=== PATIENT | female | born 1980 | race Two or more races ===

== ENCOUNTER 2023-06-07 13:10 | Inpatient (IN) | payer OTHER ==
[~2023-06-07] VITALS: Ht 154.9 cm; Wt 1.8 kg
[2023-06-07 13:57] LABS: HEMATOCRIT 36.5 % (36.0-45.00); HEMOGLOBIN 12.5 g/dL (12.0-15.00); MEAN CELL VOLUME 97.7 fL (80.00-100.00); MEAN CORPUSCULAR HEMOGLOBIN 33.3 pg (27.00-32.0); MEAN CORPUSCULAR HGB CONC 34.1 g/dl (32.0-36.0); RED BLOOD COUNT 3.74 M/uL (4.00-6.00); RED CELL DISTRIBUTION WIDTH 13.5 % (11.5-14.5)
[2023-06-07 14:00] LABS: URINE APPEARANCE Cloudy; URINE BILIRRUBIN Negative (NEGATIVE); URINE BLOOD Negative; URINE COLOR Yellow; URINE GLUCOSE Negative (NEGATIVE); URINE LEUKOCYTE Negative; URINE NITRATE Negative; URINE PROTEIN Trace (NEGATIVE); URINE UROBILINOGEN 0.2 E.U./dl
[2023-06-07 14:01] LABS: URINE BACTERIA 1244.6 uL (0.0-1933); URINE EPITHELIAL CELLS 42.5 uL (0.0-38.8); URINE WBC 31.3 uL (0.0-23.2)
[2023-06-07] MEDS ORDERED: NIFEDIPINE20 MG PO (14:02)
[2023-06-07] MEDS ORDERED: INTEGRA PLUS C1 EACH (14:02)
[2023-06-07] MEDS ORDERED: PRENA1 TRUE CO1 EACH (14:02)
[2023-06-07 14:07] LABS: INR < 0.93; PARTIAL THROMBOPLASTIN TIME 26.5 SECONDS (22.0-34.0); PROTHROMBIN TIME 9.6 SECONDS (9.0-11.5)
[2023-06-07 14:40] LABS: PLATELET COUNT 113 K/uL (150-450)
[2023-06-08 06:52] LABS: HEMATOCRIT 31.7 % (36.0-45.00); HEMOGLOBIN 11.1 g/dL (12.0-15.00); MEAN CELL VOLUME 97.6 fL (80.00-100.00); MEAN CORPUSCULAR HEMOGLOBIN 34.1 pg (27.00-32.0); RED BLOOD COUNT 3.25 M/uL (4.00-6.00); RED CELL DISTRIBUTION WIDTH 13.5 % (11.5-14.5)
[2023-06-08 07:10] LABS: PLATELET COUNT 84 K/uL (150-450)
== END 2023-06-09 14:47 | disposition home or self-care (01) | DRG 788 ==
LOC: LDR 13:10 → OB/GYN 18:56
PROVIDERS: ADMIT Specialist; ATTEND Specialist
PROC: 4A1HXCZ Monitoring of Products of Conception, Cardiac Rate, External Approach (ICD-10-PCS; 2023-06-07)
PROC: 10D00Z1 Extraction of Products of Conception, Low, Open Approach (ICD-10-PCS; principal; 2023-06-07 19:45)
DX: O36.5930 Maternal care for other known or suspected poor fetal growth, third trimester, not applicable or unspecified (principal); O69.89X0 Labor and delivery complicated by other cord complications, not applicable or unspecified; O36.8330 Maternal care for abnormalities of the fetal heart rate or rhythm, third trimester, not applicable or unspecified; Z3A.37 37 weeks gestation of pregnancy; Z37.0 Single live birth; Z20.822 Contact with and (suspected) exposure to COVID-19

== ENCOUNTER 2024-07-19 14:26 | Outpatient (CLI) | payer OTHER ==
[~2024-07-19 14:26] MED LIST: INTEGRA PLUS C1 EACH; NIFEDIPINE20 MG PO; PRENA1 TRUE CO1 EACH
== END 2024-07-19 14:35 | disposition home or self-care (01) ==
LOC: RAD 14:26
PROVIDERS: ATTEND Surgery
DX: D3A.0 Benign carcinoid tumors (principal); D12.6 Benign neoplasm of colon, unspecified

== ENCOUNTER 2024-07-20 10:46 | Outpatient (CLI) | payer OTHER ==
[2024-07-20 12:12] LABS: PH,URINE 5.5 (5.0-8.0); URINE APPEARANCE Clear; URINE BILIRRUBIN Negative (NEGATIVE); URINE BLOOD Negative; URINE COLOR Yellow; URINE GLUCOSE Negative (NEGATIVE); URINE KETONE Negative (NEGATIVE); URINE LEUKOCYTE Moderate; URINE NITRATE Negative; URINE PROTEIN Negative (NEGATIVE); URINE UROBILINOGEN 0.2 E.U./dl
[2024-07-20 12:17] LABS: URINE BACTERIA 112.1 uL (0.0-1933); URINE WBC 244.2 uL (0.0-23.2)
[2024-07-20 12:27] LABS: URINE CAST 0.91 uL (0.0-1.40)
[2024-07-20 12:28] LABS: URINE MUCUS MODERATE
[2024-07-20 12:37] LABS: HEMATOCRIT 39.3 % (36.0-45.00); MEAN CELL VOLUME 96.9 fL (80.00-100.00); MEAN CORPUSCULAR HEMOGLOBIN 32.2 pg (27.00-32.0); MEAN CORPUSCULAR HGB CONC 33.2 g/dl (32.0-36.0); PLATELET COUNT 234 K/uL (150-450); RED BLOOD COUNT 4.05 M/uL (4.00-6.00); RED CELL DISTRIBUTION WIDTH 13.3 % (11.5-14.5)
[2024-07-20 12:53] LABS: ALBUMIN 4.1 gm/dL (3.4-5.0); BILIRUBIN TOTAL 0.87 mg/dL (0.3-1.2); CALCIUM 9.6 mg/dL (8.5-10.1); CREATININE SERUM 0.46 mg/dL (0.55-1.02); GFR 147.57; GLOBULINA 2.9 G/DL (2.4-3.5); INR 0.99; PARTIAL THROMBOPLASTIN TIME 27.9 SECONDS (22.0-34.0); POTASSIUM 4.14 mEq/L (3.5-5.1); PROTHROMBIN TIME 10.8 SECONDS (9.0-11.5)
== END 2024-07-20 10:57 | disposition home or self-care (01) ==
LOC: LAB 10:46
PROVIDERS: ATTEND Surgery
DX: D3A.0 Benign carcinoid tumors (principal); D12.6 Benign neoplasm of colon, unspecified

== ENCOUNTER 2024-07-21 12:30 | Inpatient (IN) | payer OTHER ==
[~2024-07-21] VITALS: Ht 154.9 cm; Wt 45.8 kg
[2024-07-26] MEDS ORDERED: CEFTRIAXONE SODIUM 2,000 MG VIAL IV SCH (09:45)
[2024-07-26] MEDS ORDERED: METRONIDAZOLE/SODIUM CHLORIDE 500 MG/100 ML PIGGYBACK IV SCH (10:00)
[2024-07-26] MEDS ORDERED: BUPIVACAINE HCL 30 ML VIAL IJ ONE (10:00)
[2024-07-26] MEDS ORDERED: LIDOCAINE HCL 1%/EPINEPHRINE 20ML VIAL IJ ONE (10:00)
[2024-07-26] MEDS ORDERED: MORPHINE SULFATE 4 MG/ML VIAL IV ONE ×2 (11:15→12:15)
[2024-07-26] MEDS ORDERED: RINGERS SOLUTION,LACTATED 1,000 ML IV SCH (12:30)
[2024-07-26] MEDS ORDERED: MORPHINE SULFATE 4 MG/ML CARTRIDGE IV PRN (12:30)
[2024-07-26] MEDS ORDERED: DEXTROSE 50 % IN WATER 0.5 G/ML DISP.SYRIN IV PRN (12:30)
[2024-07-26] MEDS ORDERED: OxyCODONE HCL 5 MG TABLET (ROXICODONE) PO PRN (12:30)
[2024-07-26] MEDS ORDERED: ONDANSETRON HCL 2 MG/ML VIAL IV PRN (12:30)
[2024-07-26 13:47] LABS: HEMATOCRIT 38.1 % (36.0-45.00); MEAN CELL VOLUME 96.1 fL (80.00-100.00); MEAN CORPUSCULAR HEMOGLOBIN 32.8 pg (27.00-32.0); MEAN CORPUSCULAR HGB CONC 34.1 g/dl (32.0-36.0); PLATELET COUNT 198 K/uL (150-450); RED BLOOD COUNT 3.97 M/uL (4.00-6.00); RED CELL DISTRIBUTION WIDTH 13.3 % (11.5-14.5)
[2024-07-26] MEDS ORDERED: HYOSCYAMINE SULFATE 0.125 MG TAB.SUBL SL SCH (17:00)
[2024-07-26] MEDS ORDERED: POLYETHYLENE GLYCOL 3350 17 GM BLIST.PACK PO SCH (17:00)
[2024-07-26] MEDS ORDERED: GABAPENTIN 300 MG CAPSULE PO SCH (17:00)
[2024-07-26] MEDS ORDERED: SIMETHICONE 125 MG CAPSULE PO SCH (17:00)
[2024-07-26 17:15] VITALS: BP 111/74; O2SAT 100
[2024-07-26] MEDS ORDERED: ACETAMINOPHEN 500 MG GEL..CAP PO SCH (20:00)
[2024-07-26] MEDS ORDERED: FAMOTIDINE/PF 20 MG/2 ML VIAL IV PUSH SCH (21:00)
[2024-07-26] MEDS ORDERED: CELECOXIB 200 MG CAPSULE PO SCH (21:00)
[2024-07-27 00:29] VITALS: BP 112/65; O2SAT 100
[2024-07-27 06:26] LABS: HEMATOCRIT 33.1 % (36.0-45.00); HEMOGLOBIN 11.5 g/dL (12.0-15.00); MEAN CELL VOLUME 94.3 fL (80.00-100.00); MEAN CORPUSCULAR HEMOGLOBIN 32.8 pg (27.00-32.0); MEAN CORPUSCULAR HGB CONC 34.7 g/dl (32.0-36.0); PLATELET COUNT 162 K/uL (150-450); RED BLOOD COUNT 3.51 M/uL (4.00-6.00); RED CELL DISTRIBUTION WIDTH 13.7 % (11.5-14.5)
[2024-07-27 07:08] LABS: ALBUMIN 3.1 gm/dL (3.4-5.0); CALCIUM 8.5 mg/dL (8.5-10.1); CREATININE SERUM 0.4 mg/dL (0.55-1.02); GFR 173.4; MAGNESIUM 1.7 mg/dL (1.8-2.4); PHOSPHOROUS 3.1 mg/dL (2.5-4.9); POTASSIUM 3.52 mEq/L (3.5-5.1)
[2024-07-27 08:00] VITALS: BP 110/75; O2SAT 98
[2024-07-27] MEDS ORDERED: MAGNESIUM SULFATE IN WATER 50 ML IV ONE (08:00)
[2024-07-27] MEDS ORDERED: LACTOBACILLUS ACIDOPHILUS 1 CAP CAP PO SCH (09:00)
[2024-07-27 16:22] VITALS: BP 114/77; O2SAT 98
[2024-07-27] MEDS ORDERED: ENOXAPARIN SODIUM 40 MG/0.4 ML SYRINGE SUBCUTANEO SCH (17:00)
[2024-07-27] MEDS ORDERED: GABAPENTIN 300 MG CAPSULE PO PRN (17:16)
[2024-07-28] VITALS: BP 114/76; O2SAT 100
[2024-07-28 07:08] LABS: HEMATOCRIT 33.4 % (36.0-45.00); HEMOGLOBIN 11.2 g/dL (12.0-15.00); MEAN CELL VOLUME 96.2 fL (80.00-100.00); MEAN CORPUSCULAR HEMOGLOBIN 32.3 pg (27.00-32.0); MEAN CORPUSCULAR HGB CONC 33.6 g/dl (32.0-36.0); PLATELET COUNT 171 K/uL (150-450); RED BLOOD COUNT 3.47 M/uL (4.00-6.00); RED CELL DISTRIBUTION WIDTH 13.4 % (11.5-14.5)
[2024-07-28 07:50] LABS: CALCIUM 8.7 mg/dL (8.5-10.1); CREATININE SERUM 0.39 mg/dL (0.55-1.02); GFR 178.54; MAGNESIUM 1.8 mg/dL (1.8-2.4); PHOSPHOROUS 2.6 mg/dL (2.5-4.9); POTASSIUM 3.64 mEq/L (3.5-5.1)
[2024-07-28 08:34] VITALS: BP 117/80; O2SAT 97
[2024-07-28] MEDS ORDERED: ENOXAPARIN SODIUM 40 MG/0.4 ML SYRINGE SUBCUTANEO SCH (09:00)
[2024-07-28] MEDS ORDERED: INTESTINEX680 M1 PO (09:50)
[2024-07-28] MEDS ORDERED: LEVSIN0.125 MG PO (09:51)
== END 2024-07-28 13:20 | disposition home or self-care (01) | DRG 331 ==
LOC: O/R 07-26 05:28 → SURG 07-26 05:28 → SURH 07-26 09:15 → SURG 07-26 15:22
PROVIDERS: Internal Medicine Geriatric Medicine; ADMIT Surgery; ATTEND Surgery
PROC: 0DJD8ZZ Inspection of Lower Intestinal Tract, Via Natural or Artificial Opening Endoscopic (ICD-10-PCS; 2024-07-26)
PROC: 0DT84ZZ Resection of Small Intestine, Percutaneous Endoscopic Approach (ICD-10-PCS; principal; 2024-07-26 09:15)
DX: C17.1 Malignant neoplasm of jejunum (principal); D12.6 Benign neoplasm of colon, unspecified; R59.0 Localized enlarged lymph nodes